=== PATIENT | female | born 1960 | race Caucasian/White ===

== ENCOUNTER 2019-08-08 07:30 | Day surgery (SDC) | payer MEDICARE ==
[~2019-08-08] VITALS: Ht 167.6 cm; Wt 57.2 kg
[~2019-08-08 07:30] MED LIST: ALLE180T33 PO; BACITRACIN PWD 50,000 UNITS VIAL As Ordered ONE; BUPIVACAINE HCL 0.5% 30 ML VIAL As Ordered ONE; COSE1INJ SC; DITR1TAB PO; ECOT81TA5 PO; FAMO40TA3 PO; LIDOCAINE 1% SDV INJ 30 ML VIAL As Ordered ONE; LR 1,000 ML IV ONE; MAXA10TA14 PO; MULTTAB12 PO; NEOSPORIN GU IRRIG 20 ML VIAL As Ordered ONE; NITR0.4S14 SL; NITR50CA34 PO; PANT40TA3 PO; PREM0.45 PO; SYNT25TA PO; TOPI1CAP2 PO; ceFAZolin SOD 2 GM in IV 1 EA IV ONE; dexameTHASONE 4 MG/ML 1ML VIAL (J1100) As Ordered ONE
[2019-08-08] MEDS ORDERED: LIDOCAINE 2% MDV 20 ML VIAL As Ordered ONE (07:53)
[2019-08-08] MEDS ORDERED: SCOPOLAMINE 1MG TRANSDERMAL PATCH TOP ONE (08:30)
[2019-08-08] MEDS ORDERED: fentaNYL 100 MCG/2 ML INJECTION (J3010) As Ordered ONE (09:18)
[2019-08-08] MEDS ORDERED: PROPOFOL 200 MG/20 ML VIAL As Ordered ONE ×2 (09:18→09:41)
[2019-08-08] MEDS ORDERED: MIDAZOLAM INJ 2 MG/2 ML VIAL (J2250) As Ordered ONE (09:18)
[2019-08-08] MEDS ORDERED: PHENYLephrine HCL 500 MCG/5 ML (100MCG/ML) SYRINGE (J2370) As Ordered ONE (09:25)
[2019-08-08] MEDS ORDERED: ePHEDrine SULFATE 25 MG/5 ML(5MG/ML) SYRINGE As Ordered ONE (09:55)
[2019-08-08 10:35] VITALS: BP 134/74
[2019-08-08] MEDS ORDERED: oxyCODONE 5MG TAB As Ordered ONE (10:39)
[2019-08-08] MEDS ORDERED: fentaNYL 100 MCG/2 ML INJECTION (J3010) IV PRN (10:45)
[2019-08-08] MEDS ORDERED: oxyCODONE 5MG TAB PO PRN (10:45)
[2019-08-08] MEDS ORDERED: ONDANSETRON 4MG/2ML VIAL (J2405) IV PRN (10:45)
[2019-08-08] MEDS ORDERED: LR 1,000 ML IV SCH (10:45)
--- NOTE | 2019-08-08 10:48 | REP ---
Clinical: Status post bunionectomy. Technique: AP, lateral, oblique views of the left foot. Findings: Baseline postsurgical evaluation demonstrates satisfactory alignment and surgical intervention at the first metatarsal head. Overlying postsurgical changes noted. Impression: Postsurgical changes. Electronically Signed by Timi Davis MD 08/08/2019 10:39 A
--- NOTE | 2019-08-08 19:08 | REP ---
Clinical: Status post bunionectomy. Technique: Intraoperative fluoroscopic imaging using portable C-arm technique. Findings: Evidence for prior bunionectomy involving the second toe. Satisfactory alignment and postsurgical changes. Total fluoroscopic time 4.9 seconds (0.06 mGy). Impression: Status post bunionectomy. Electronically Signed by Timi Davis MD 08/08/2019 07:00 P
--- NOTE | 2019-08-09 10:16 | RO ---
DATE OF PROCEDURE: 08/08/2019 PREOPERATIVE DIAGNOSIS: Hallux valgus deformity of left foot. POSTOPERATIVE DIAGNOSIS: Hallux valgus deformity of left foot. PROCEDURE: Ty bunionectomy left foot. SURGEON: Philip Hall DPM BLOCKER HAND: None. ANESTHESIA: Local, monitored anesthesia care (MAC). IRRIGATION: Dilute bacitracin, neomycin and polymyxin B solution. HEMOSTASIS: Ankle pneumatic tourniquet at 200 mmHg, 33 minutes, left ankle. HARDWARE UTILIZED: Arthrex headless compression screw 3.0 x 20 mm times one left foot. DESCRIPTION OF PROCEDURE: On 08/08/2019, this 59-year-old female was taken from her hospital room to the operating room and placed on the operating room table in a supine position. Following the induction of IV sedation and local and regional anesthesia, the left lower extremity was prepped and draped in the usual aseptic manner. Attention was directed to the patients left foot, where the following procedure was preformed. Ty bunionectomy left foot Dorsal to the first metatarsal phalangeal joint an incision was placed over the first metatarsal phalangeal joint measuring approximately 6 cm. The incision was deepened through subcutaneous tissues and all coursing venous tributaries were identified, underscored, clamped, cut, ligated, and electrocoagulated as necessary. A linear capsulotomy was performed in the same plane as the original skin incision. The capsule and periosteal structures were then dissected free in one continuous layer dorsally, medially and laterally, thus creating a capsule and periosteal type envelope. This brought in to view the hypertrophied medial eminence of the first metatarsal, which was osteotomized from distal to proximal through and through. Small spurring was noted on the dorsal aspect of the first metatarsal. This was rongeured of the first metatarsal. The articular cartilage was noted to be in a remarkably laterally deviated position. Therefore, a Reverdin laird type osteotomy was performed, modified so that the two dorsal osteotomies converged to remove a wedge of bone to reduce the proximal interarticular set angle and a larger inferior osteotomy was created. The first osteotomy created was the inferior osteotomy. It was medial to lateral through and through, through the distal metaphysis. Superiorly the dorsal osteotomy was created, more distal osteotomy was created parallel to the cartilage of the first metatarsal. The more proximal osteotomy was approximately perpendicular to the long axis of the first metatarsal and a wedge-shaped piece of bone was removed. The osteotomy was completed. The capital fragment was derotated and fixation was achieved with a 3.0 x 20 mm headless compression screw with good stability. The redundant cortical spike was osteotomized from dorsal to plantar through and through. The medial surface was then rasped to a smooth contour. The wound was flushed with copious amounts of dilute bacitracin, neomycin and polymyxin B solution. Attention was directed towards where the capsular structures were coapted and maintained utilizing #2-0 Monocryl in a simple interrupted type fashion, subcutaneous tissues coapted and maintained utilizing #4-0 Monocryl in a simple interrupted type fashion, and skin incision was coapted and maintained utilizing #5-0 Monocryl in a continuous subcuticular type fashion. This was additionally reinforced with Steri-Strips. Following the completion of the surgical procedure, 4 mg of dexamethasone sodium phosphate was instilled proximal to the surgical site. Attention was directed towards bandaging where a sterile compressive bandage was applied consisting of Adaptic, 4 x 4's, 4 x 4 splints, Kiersten, Kerlix and Coban. The ankle pneumatic tourniquet was rapidly deflated and instantaneous capillary filling time was noted in digits 1-5 of the patients left foot. The patient having apparently tolerated the surgical procedure well was taken from the operating room (OR) to the recovery room with vital signs stable and for further monitoring by the anesthesia department. Postoperative instructions will be given upon discharge. EDWARD
== END 2019-08-08 11:10 | disposition home or self-care (01) ==
LOC: M SDC 07:30
PROVIDERS: ATTEND Podiatrist
DX: M20.12 Hallux valgus (acquired), left foot (principal); M79.672 Pain in left foot; M79.675 Pain in left toe(s); E03.9 Hypothyroidism, unspecified; E78.49 Other hyperlipidemia; K21.9 Gastro-esophageal reflux disease without esophagitis; I25.10 Atherosclerotic heart disease of native coronary artery without angina pectoris; F17.218 Nicotine dependence, cigarettes, with other nicotine-induced disorders; L40.8 Other psoriasis; F41.9 Anxiety disorder, unspecified; Z88.8 Allergy status to other drugs, medicaments and biological substances; Z79.899 Other long term (current) drug therapy
CPT/HCPCS: 28296; 73630; 76000; 88300; 97116; C1713; J0690; J1100; J2250; J2370; J3010